=== PATIENT | female | born 1975 | race Hispanic/Latino ===

== ENCOUNTER → 2024-09-17 | Day surgery (SDC) | payer OTHER ==
[~2024-09-17] MED LIST: FENTANYL CITRATE/PF 100MCG/2 ML INJ ONE; FERROUS SULFAT325 MG PO; HYOSCYAMINE SULFATE 0.5 MG/ML INJ ONE; LIDOCAINE HCL 2% LOCAL INJ 5 ML SDV VIAL INJ ONE; PROPOFOL IV EMULSION 50 ML IV ONE; ZESTRIL10 MG PO
[2024-09-17] MEDS: LACTATED RINGER'S 1,000 ML ONE (09:51)
[2024-09-17 11:51] VITALS: TEMP 97.7
[2024-09-17 12:20] VITALS: BP 139/90; PULSE 65; RESP 16; O2SAT 100
[2024-09-20 08:10] LABS: ENDOMYSIAL ANTIBODIES, IGA Negative (Negative)
[2024-09-20 12:06] LABS: IMMUNOGLOBULIN A 266 mg/dL (87-352); TISSUE TRANSGLUTAMINASE IGA AB <2 U/mL (0-3)
== END | disposition home or self-care (01) ==
LOC: OR 09:23
PROVIDERS: ATTEND Internal Medicine Gastroenterology
DX: D50.9 Iron deficiency anemia, unspecified (principal); D12.2 Benign neoplasm of ascending colon; K31.7 Polyp of stomach and duodenum; K29.60 Other gastritis without bleeding; K31.89 Other diseases of stomach and duodenum; K20.90 Esophagitis, unspecified without bleeding; K64.8 Other hemorrhoids; Z71.3 Dietary counseling and surveillance; I10 Essential (primary) hypertension; Z71.9 Counseling, unspecified; Z01.810 Encounter for preprocedural cardiovascular examination; Z79.899 Other long term (current) drug therapy; Z68.30 Body mass index [BMI] 30.0-30.9, adult
CPT/HCPCS: 43239; 45385; 81025; 82784; 83516; 86256; 93005; J1980; J2003; J2470; J2704; J3010; J7121; 45378